=== PATIENT | female | born 1995 | race Caucasian/White ===

== ENCOUNTER 2020-05-01 13:04 | Outpatient (CLI) | payer SELFPAY ==
[2020-05-01 13:54] LABS: SARS-CoV-2 Ag Negative (Negative)
== END 2020-05-01 13:05 | disposition home or self-care (01) ==
LOC: CHSLAB 13:08
PROVIDERS: PCP Nurse Practitioner Psychiatric/Mental Health; Visit Provider Nurse Practitioner Psychiatric/Mental Health
DX: J06.9 Acute upper respiratory infection, unspecified (principal); Z20.828 Contact with and (suspected) exposure to other viral communicable diseases
CPT/HCPCS: 87426